=== PATIENT | female | born 1955 | race Caucasian/White ===

== ENCOUNTER 2020-01-06 11:26 | Emergency (ER) | payer OTHER, SELFPAY ==
[2020-01-06 11:40] VITALS: BP 142/92; PULSE 63; RESP 14; TEMP 36.7; O2SAT 95
--- NOTE | 2020-01-06 11:59 | ED.ABDPAIN ---
HPI - Abdominal Pain General Chief Complaint: Urogenital-Female Stated Complaint: 64YO female w/ known h.o alzheimers dementia and a known h.o hemorrhoids here w/ a hemmrhoid flareup. states she hasn't been drinking enough water and has been straining to have a BM. Related Data Home Medications Medication Instructions Recorded Confirmed ascorbic acid (vitamin C) 1,000 mg 1 gm PO DAILY 08/24/19 01/06/20 tablet aspirin 81 mg tablet,delayed 81 mg PO DAILY 08/24/19 01/06/20 release cholecalciferol (vitamin D3) 125 5,000 unit PO DAILY 08/24/19 01/06/20 mcg (5,000 unit) capsule donepezil 10 mg tablet 10 mg PO .QHS tablet 08/24/19 01/06/20 magnesium 250 mg tablet 250 mg PO DAILY 08/24/19 01/06/20 memantine 10 mg tablet 10 mg PO BID 08/24/19 01/06/20 multivitamin 1 tablet PO DAILY 08/24/19 01/06/20 omega-3 650 mg-dha 400 mg-epa 200 1 cap PO DAILY 08/24/19 01/06/20 mg-fish oil-vit D3 300 unit capsule potassium 99 mg tablet 99 mg PO DAILY tablet 08/24/19 01/06/20 vitamin B complex 1 tablet PO DAILY 08/24/19 01/06/20 Allergies Allergy/AdvReac Type Severity Reaction Status Date / Time No Known Allergies Allergy Mild Verified 10/20/19 13:04 Review of Systems Review of Systems: All systems reviewed & are unremarkable except as noted in HPI and below Constitutional: Constitutional: Reports as per HPI and Reports no additional constitutional complaints Cardiovascular: Cardiovascular: Reports as per HPI and Reports no additional cardiovascular complaints Respiratory: Respiratory: Reports as per HPI and Reports no additional respiratory complaints Gastrointestinal: Gastrointestinal: Reports no additional gastrointestinal complaints, Denies abdominal pain, Denies bloating, Reports constipation, Denies heartburn, Denies diarrhea, Denies nausea and Denies vomiting Genitourinary: Genitourinary: Reports no additional female genitourinary complaints Musculoskeletal: Musculoskeletal: Reports no additional musculoskeletal complaints Integumentary/Breasts: Skin/Breast: Reports system reviewed and no additional complaints, except as docu REPLACED BY [facility] Past Medical History Medical History Alzheimer disease Benign essential HTN Hemorrhoids with prolapsed tissue that cannot be manually replaced Surgical History Surgical History H/O hemorrhoidectomy Family History Family History Mother Patient's mother is , Onset Age: 60 Father Patient's father is , Onset Age: 72 Sibling Patient's sister is in good health Family history of cardiovascular disease, Onset Age: 42 Brother Family history of lymphoma Social History Social History Years smoked: 30 Smoking status: Former smoker Tobacco type: cigarettes Second hand tobacco smoke exposure: No Smoking end date: 06/21/18 Alcohol intake: never Substance use: never Substance use type: does not use Gender identity (if verbalized by the patient): Female Exam Const: General: no acute distress and alert HENMT: Head: normal to inspection Eyes: Pupils: Equal, round and reactive pupils present Neck: Neck: normal visual inspection Chest: Chest palpation & inspection: normal inspection of the chest Resp: Effort & Inspection: normal respiratory effort Auscultation: clear to auscultation bilaterally Cardio: Rate: regular rate Rhythm: regular rhythm GI: GI Palp: Yes Soft to palpation and No Tenderness to palpation present (GI) Percussion: Yes normal to percussion Rectal Exam: hemorrhoids (prolapsed, no jannet bleeding or oozing of blood) : General: Yes no CVA tenderness Course Course Emergency Course: No active bleeding. BUN/Creat normal, H/H Normal. D/C home w/ treatment for h
[2020-01-06 12:23] LABS: INR 0.9; Prothrombin Time 9.6 Seconds (9.64-11.0)
[2020-01-06 12:24] LABS: Hematocrit 45.7 % (35.0-49.0); Hemoglobin 14.9 g/dL (12.0-15.0); Mean Corpuscular HGB Conc 32.6 g/dL (32.0-36.0); Mean Corpuscular Hemoglobin 30.8 pg (27.0-31.0); Mean Corpuscular Volume 94.4 fL (78.0-102.0); Mean Platelet Volume 12.2 fl (9.2-11.8); Platelet Count Result 224 K/mm3 (150-420); Red Blood Count 4.84 M/mm3 (4.20-5.40); Red Cell Distribution Width 13.1 % (11.6-14.4); White Blood Count 5.3 K/mm3 (4.8-10.8)
[2020-01-06 12:27] LABS: Alanine Aminotransferase 26 U/L (14-59); Albumin Level 3.8 g/dL (3.4-5.0); Alkaline Phosphatase 67 U/L (46-116); Aspartate Amino Transferase 23 U/L (15-37); Bilirubin,Total 0.4 mg/dL (0.00-1.00); Blood Urea Nitrogen 13 mg/dL (7-18); Calcium 9.7 mg/dL (8.5-10.1); Carbon Dioxide 34 mmol/L (21-32); Chloride 106 mmol/L (98-108); Estimated CRCL calculation 76 ml/min; Estimated Glomerular Filt Rate > 60; Glucose 99 mg/dL (70-99); Osmolality Calculated 294 mOsm/kg (285-295); Sodium 142 mmol/L (136-145); Total Protein 7.6 g/dL (6.4-8.2)
== END 2020-01-06 13:10 | disposition home or self-care (01) ==
PROVIDERS: Emergency Provider Family Medicine; PCP Family Medicine
DX: K64.4 Residual hemorrhoidal skin tags (principal); I10 Essential (primary) hypertension; Z87.891 Personal history of nicotine dependence
CPT/HCPCS: 36415; 80053; 85027; 85610; 99283

== ENCOUNTER 2020-01-25 12:24 | Outpatient (CLI) | payer OTHER, SELFPAY ==
--- NOTE | ~2020-01-25 | MM_ITS ---
EXAMINATION: MM screening nori BI w shannon HISTORY: Screening TECHNIQUE: Craniocaudal and mediolateral oblique 3-D tomosynthesis images were obtained and synthetic 2-D images were generated. CAD analysis was submitted and interpreted. COMPARISON: Comparison to multiple prior studies sequentially, with oldest reviewed study dated 09/03. BREAST PARENCHYMAL COMPOSITION: There are scattered areas of fibroglandular density. FINDINGS: There is no evidence of suspicious mass, calcification, or architectural distortion to sugg est malignancy in either breast. There has been no suspicious interval change. IMPRESSION: 1. No mammographic evidence of malignancy. 2. Recommend routine screening mammography in one year. BI-RADS Category 1: Negative Reviewed, dictated and finalized at location A.
== END 2020-01-25 12:25 | disposition home or self-care (01) ==
LOC: CHSIMG 12:25
PROVIDERS: PCP Family Medicine; Visit Provider Family Medicine
DX: Z12.31 Encounter for screening mammogram for malignant neoplasm of breast (principal)
CPT/HCPCS: 77063; 77067

== ENCOUNTER 2021-02-26 16:00 | Outpatient (CLI) | payer MEDICARE, SELFPAY ==
--- NOTE | ~2021-02-26 | XR_ITS ---
XR knee RT 3V 02/26/2021 16:35 Indication: Right knee pain Procedure: 3 views right knee Comparison: No prior studies for comparison. Findings: Large amount of prepatellar soft tissue swelling. Small joint effusion. There is mild trico mpartment osteoarthritis of the right knee. No fracture or traumatic malalignment. There are vascula r calcifications. Impression: 1: Large amount of prepatellar soft tissue swelling, suspicious for bursitis. 2: Mild osteoarthritis of the right knee. Reviewed, dictated and finalized at location A. Impression: 1: Large amount of prepatellar soft tissue swelling, suspicious for bursitis. 2: Mild osteoarthritis of the right knee.
== END 2021-02-26 16:01 | disposition home or self-care (01) ==
LOC: ANHIMG 16:06
PROVIDERS: PCP Family Medicine; Visit Provider Physician Assistant
DX: M17.11 Unilateral primary osteoarthritis, right knee (principal); M79.89 Other specified soft tissue disorders
CPT/HCPCS: 73562

== ENCOUNTER 2021-03-07 12:09 | Outpatient (CLI) | payer MEDICARE, SELFPAY ==
--- NOTE | ~2021-03-07 | MM_ITS ---
EXAMINATION: MM screening nori BI w shannon HISTORY: Screening TECHNIQUE: Craniocaudal and mediolateral oblique 3-D tomosynthesis images were obtained and synthetic 2-D images were generated. CAD analysis was submitted and interpreted. COMPARISON: Comparison to multiple prior studies sequentially, with oldest reviewed study dated 12/15. BREAST PARENCHYMAL COMPOSITION: The breasts are almost entirely fatty. FINDINGS: There is no evidence of suspicious mass, calcification, or architectural distortion to sugg est malignancy in either breast. There has been no suspicious interval change. IMPRESSION: 1. No mammographic evidence of malignancy. 2. Recommend routine screening mammography in one year. BI-RADS Category 1: Negative Reviewed, dictated and finalized at location A.
== END 2021-03-07 12:10 | disposition home or self-care (01) ==
LOC: CHSIMG 12:12
PROVIDERS: PCP Family Medicine; Visit Provider Nurse Practitioner Obstetrics & Gynecology
DX: Z12.31 Encounter for screening mammogram for malignant neoplasm of breast (principal)
CPT/HCPCS: 77063; 77067

== ENCOUNTER 2021-03-22 10:33 | Emergency (ER) | payer MEDICARE, SELFPAY ==
[2021-03-22 10:44] VITALS: BP 144/108; PULSE 88; RESP 16; TEMP 36.6; O2SAT 99
--- NOTE | 2021-03-22 14:10 | PC.NURSE ---
pt to desk yelling at this RN regarding wait time. pt stating that this is ridiculous. I'm doing your job for you watching this dementia patient. pt informed verbal aggression would not be tolerated.
--- NOTE | 2021-03-22 14:19 | PC.NURSE ---
pt being led out of dept by . stating, we're signing out. as they exited building. pt had steady gait and appeared to not be in any distress.
== END 2021-03-22 14:19 | disposition left against medical advice (07) ==
PROVIDERS: PCP Family Medicine
DX: F03.90 Unspecified dementia, unspecified severity, without behavioral disturbance, psychotic disturbance, mood disturbance, and anxiety (principal)
CPT/HCPCS: 99199